=== PATIENT | male | born 1980 | race Caucasian/White ===

== ENCOUNTER 2024-06-12 10:32 | Emergency (ER) | payer SELFPAY ==
[2024-06-12 10:45] VITALS: BP 139/102
[2024-06-12 11:12] LABS: % Eosinophils 4.2 % (0-6); % Immature Granulocytes 0.2 % (0-0.5); % Lymphocytes 25.7 % (20.5-51.1); % Monocytes 6.7 % (1.7-9.3); % Neutrophils 62.2 % (42.2-75.2); Absolute Eosinophils 0.2 10^3/uL (0-0.7); Absolute Monocytes 0.3 10^3/uL (0.1-0.6); Absolute Neutrophils 2.5 10^3/uL (1.4-6.5); Hematocrit 40.1 % (39.0-52.0); Hemoglobin 13.8 g/dL (13.0-18.0); Mean Corp Hgb Conc. 34.4 g/dL (33.0-37.0); Mean Corpuscular Hgb 29.9 pg (27.0-31.0); Mean Platelet Volume 11.8 fL (7.4-10.4); Nucleated Red Blood Cells % 0 % (-); Platelet Count 81 10^3/uL (130-400); Red Blood Cell Count 4.61 10^6/uL (4.70-6.10); Red Cell Dist. Width 12.7 % (11.5-14.5)
[2024-06-12 11:28] LABS: ALT (SGPT) 64 U/L (0-50); AST (SGOT) 76 U/L (17-59); Albumin 4.5 g/dl (3.5-5.0); Alkaline Phosphatase 68 U/L (38-126); Blood Urea Nitrogen 11 mg/dl (9-20); Calcium 9.6 mg/dl (8.4-10.2); Carbon Dioxide 27 mmol/L (22-30); Chloride 104 mmol/L (98-107); Glucose 102 mg/dl (70-99); Potassium 4.7 mmol/L (3.5-5.1); Sodium 142 mmol/L (135-145); Total Bilirubin 0.7 mg/dl (0.2-1.3); Total Protein 7.3 g/dl (6.3-8.2); Uric Acid 7.7 mg/dl (3.5-8.5); eGFR > 60.00
--- NOTE | 2024-06-12 12:19 | ED.GENMED ---
Addendum entered and electronically signed by Bebeto Sierra MD 06/12/24 12:48:
Of note upon patient's discharge his diastolic blood pressure is 107. He is currently totally asymptomatic. Blood pressures were borderline high at urgent care. Discussed at length with the patient. He is given a prescription for amlodipine 5
mg. He will check his blood pressure closely the next few days. If diastolic remains above 100 he will start the amlodipine. If in the 90s he will follow-up closely and follow-up closely
Original Note:
History of Present Illness
General
Chief Complaint: Abnormal Lab Value
Source: patient
Exam Limitations: none
Time Seen by Provider: 06/12/24 11:28
History of Present Illness
History of Present Illness:
Patient is followed at [facility] for gout. He had routine labs followed up because of his gout. They were concerned with low platelets and low white count and sent to the ER for further evaluation. Patient has no acute medical complaints
except for a mild flareup of his gout in his right base of his first toe. No fever chills night sweats chest pain abdominal pain or other complaints. No abnormal bleeding.
Past History
Past History
ED Past Medical History: None
ED Past Surgical History: Orthopedic
Social History
Tobacco: Non-smoker
Alcohol: Occasional
Employment: Employed
Review of Systems
Review of Systems
All Other Systems: Not applicable
Constitutional: Denies fever, weight loss, fatigue, night sweats or chills
Respiratory: Reports no symptoms
Cardiac: Reports no symptoms
ABD/GI: Denies bloody stools or black stools
Phy Exam
Physical Exam
Physical Exam:
GENERAL: Alert and oriented in no apparent distress
EYE: Orbits normal. No petechiae.
NECK: Supple
CARDIAC: Regular rate and rhythm without any obvious murmurs.
LUNGS: Clear breath sounds,normal
ABDOMEN: Soft, without focal tenderness or distention
NEUROLOGICAL: Alert and oriented , grossly non-focal
SKIN: Warm and dry, no rash or lesion, no discoloration, skin intact. No unusual bruising.
MUSCULOSKELETAL: No edema,no deformity.Good color. Mild tenderness to the right first MTP joint
PSYCH: Normal and appropriate interaction.
Course
Orders/Labs/Results
Orders:
Orders
06/12/24 10:54
Complete Blood Count/With Diff Urgent
Comprehensive Metabolic Panel Urgent
Uric Acid Urgent
Abnormal Lab Results
06/12/24
10:54
WBC 4.0 L 10^3/uL
(4.8-10.8)
RBC 4.61 L 10^6/uL
(4.70-6.10)
Plt Count 81 L 10^3/uL
(130-400)
MPV 11.8 H fL
(7.4-10.4)
Absolute Lymphs (auto) 1.0 L 10^3/uL
(1.2-3.4)
Glucose 102 H mg/dl
(70-99)
AST 76 H U/L
(17-59)
ALT 64 H U/L
(0-50)
06/12/24 10:54
06/12/24 10:54
Vital Signs
Initial and Last Documented VS:
Initial Vital Signs
Temp Pulse Resp BP Pulse Ox
98.4 F 79 18 139/102 97
06/12/24 10:45 06/12/24 10:45 06/12/24 10:45 06/12/24 10:45 06/12/24 10:45
Last Documented Vital Signs
Temp Pulse Resp BP Pulse Ox
98.4 F 79 18 139/102 97
06/12/24 10:45 06/12/24 10:45 06/12/24 10:45 06/12/24 10:45 06/12/24 10:45
MDM/Problems Addressed
Differential Diagnosis Includes:
Patient with a benign exam. No bleeding issues. Mild thrombocytopenia. Minimal leukopenia. No infectious issues. Discussed treating his gout with hematology. Will stick to prednisone and follow-up. Follow-up with hematology in the next few
weeks
*Critical Care Note
Total Time (30-74mins, 75-104mins- exclusive of procedures): Not Applicable
ED Attending Note
-
Portions of this chart may have been created with voice recognition software.� Occasional wrong word or��sound alike� substitutions may have occurred due to the inherent limitations of voice recognition software.
Discharge Plan
Departure
Patient Disposition: Home (Routine Discharge)
Date of Disposition: 06/12/24
Time of Disposition: 12:25
Patient with high blood pressure during this ER visit?: Yes
Discharge Problem:
Mild thrombocytopenia, Mild leukopenia
Instructions: BLOOD PRESSURE
Prescriptions:
New
prednisone 10 mg tablet
10 mg PO DAILY Qty: 20 0RF
Rx Instructions:
4 tablets day 1. Then 1 less tablet every other day until gone
Referrals:
NONE,* [Family Provider] -
Sreedhar Robledo MD [Active] -
Activity Restrictions/Additional Instructions:
Prednisone for a gout flare
Tylenol for pain
No Advil Motrin Aleve for any other anti-inflammatory nonsteroidal
Call the fuse cup expander for follow-up in the next few weeks. When you call you can let them know this is the physician we talked to
Return sooner with any unusual bleeding issues or unusual infectious issues with a slightly low white count.
Interventions
Interventions:
*Risk Screen - Suicide Last Done: 06/12/24 10:43
*General Assessment Last Done: 06/12/24 10:43
*Neglect/Abuse Screening Last Done: 06/12/24 10:43
Discharge Date and Time
Print Language: [id number]
[2024-06-12 12:48] VITALS: BP 144/107
== END 2024-06-12 12:58 | disposition home or self-care (01) ==
LOC: EMR 10:32
PROVIDERS: EMERGENCY PHYSICIAN Emergency Medicine
DX: D69.6 Thrombocytopenia, unspecified (principal); D72.819 Decreased white blood cell count, unspecified
CPT/HCPCS: 99283; 80053; 84550; 85025